=== PATIENT | male | born 1950 | race Caucasian/White ===

== ENCOUNTER → 2016-07-08 | Outpatient (CLI) | payer OTHER ==
[2016-07-08 13:56] LABS: HEMATOCRIT 47.1 % (39.0-51.0); MEAN CELL VOLUME 89.5 FL (80.0-100.0); MEAN CORPUSCULAR HEMOGLOBIN 30.2 PG (27.0-34.0); MEAN CORPUSCULAR HGB CONC 33.8 % (32.0-36.0); PLATELET COUNT 250 TH/MM3 (150-450); RED BLOOD COUNT 5.27 MIL/MM3 (4.50-5.90); RED CELL DISTRIBUTION WIDTH 12.8 % (11.6-17.2); REVIEW FLAG FINAL; WHITE BLOOD COUNT 7.2 TH/MM3 (4.0-11.0)
--- NOTE | 2016-07-08 23:41 | EKG ---
Date Performed: 07/08/2016 Time Performed: 12:41:36 PTAGE: 65 years EKG: Sinus rhythm NORMAL ECG NO PREVIOUS TRACING DOCTOR: Abdi Wells Interpretating Date/Time 07/08/2016 23:41:16
== END ==
LOC: CPRE 12:13
PROVIDERS: ATTEND Specialist
DX: Z01.812 Encounter for preprocedural laboratory examination (principal); Z01.810 Encounter for preprocedural cardiovascular examination
CPT/HCPCS: 36415; 85027; 93005

== ENCOUNTER → 2016-07-10 | Day surgery (SDC) | payer OTHER ==
--- NOTE | 2016-07-09 08:41 | MH ---
cc: SANDHYA TORRES DATE OF ADMISSION: 07/10/2016 HISTORY OF PRESENT ILLNESS A 65-year-old gentleman with vocal cord lesion and nasal obstruction, for open septal reconstruction, bilateral inferior turbinectomy and direct laryngoscopy and biopsy. PAST MEDICAL HISTORY Unremarkable. PAST SURGICAL HISTORY Unremarkable. REVIEW OF SYSTEMS/FAMILY HISTORY AND SOCIAL HISTORY Unremarkable. PHYSICAL EXAMINATION GENERAL: Well-appearing patient, no acute distress noted. HEENT: Exam reveals septal deviation, turbinate hypertrophy and a right-sided vocal cord lesion. LUNGS: Clear. HEART: Regular rate and rhythm. ABDOMEN: Soft and nontender. EXTREMITIES: Without cyanosis, clubbing or edema. NEUROLOGIC: Alert, oriented, nonfocal neurologic exam. IMPRESSION Patient with chronic hoarseness and vocal cord lesion, for direct laryngoscopy and biopsy and for nasal surgery to improve breathing. The patient was instructed method of surgery and possible complication to include anesthetic complication, cardiac difficulty, pulmonary difficulty, stroke, coma or even . Surgical complication of bleeding, infection, risk of injury to septum with bleeding, transfusion requirement, packing requirement, septal perforation, decreased sense of smell, airway obstruction and poor voice. The patient appeared to agree and accept and understand above-mentioned risks and benefits, in addition no guarantees or warranties regarding outcome were given. Will therefore proceed with surgery. MD SAMANTHA Bryant/RENETTA /8:11 AM /8:24 AM
[~2016-07-10] VITALS: Ht 185.4 cm; Wt 108.6 kg
[~2016-07-10] MED LIST: ACETAMINOPHEN 1000 MG/100 ML VIAL IV ONE; ACETAMINOPHEN/HYDROcodone 325 MG/7.5 MG TAB PO PRN; CHLORHEXIDINE GLUCONATE 2 % 1 PACK (2 CLOTHS) TOPICAL PRN; DO NOT ADM ANY ANTICOAGULANT DRUGS PRN; EPINEPHrine HCL (1:1000) 30 MG/30 ML VIAL OTHER ONE; FAMOTIDINE 20 MG/2 ML VIAL ONE; INSULIN HUMAN REGULAR 1,000 UNITS/10 ML VIAL SQ PRN; LACTATED RINGER'S 1000 ML IV PRN; LIDOCAINE 1%/EPINEPHrine 1:200,000 PF SOLN 30 ML VIAL INFIL ONE; METOPROLOL TARTRATE 25 MG TAB PO PRN; MORPHINE SULFATE 4 MG/ML INJ IV PUSH PRN; NEOSTIGMINE 3 MG/3 ML SYR IV ONE; ONDANSETRON HCL 4 MG/2 ML VIAL IV PUSH ONE; ONDANSETRON HCL 4 MG/2 ML VIAL IV PUSH PRN; PROPOFOL 200 MG/20 ML AMP IV ONE; RESP: ALBUTEROL 2.5 MG/IPRATROPIUM 0.5 MG NEB (SCH) ONE; SODIUM CHLORID 0.9% 500 ML IV PRN; SUGAMMADEX SODIUM 200 MG/2 ML VIAL IV PUSH ONE; ePHEDrine/NS 25 MG/5 ML SYR IV ONE; fentaNYL CITRATE 250 MCG/5 ML AMP ONE
[2016-07-10 06:55] VITALS: BP 141/84; PULSE 67; RESP 16; TEMP 98; O2SAT 97
[2016-07-10 10:23] VITALS: TEMP 98.1
[2016-07-10 11:02] VITALS: BP 142/76; PULSE 69; RESP 18; O2SAT 98
--- NOTE | 2016-07-13 10:02 | MP ---
cc: SANDHYA TORRES DATE OF SURGERY: 07/10/2016 PREOPERATIVE DIAGNOSIS: Vocal cord lesion, chronic sinusitis. Nasal obstruction. POSTOPERATIVE DIAGNOSIS: Vocal cord lesion, chronic sinusitis. Nasal obstruction. OPERATION: Open septal reconstruction, left nasal polypectomy, bilateral endoscopic maxillary antrostomy, bilateral inferior turbinectomy, submucous resection, direct laryngoscopy, biopsy. ANESTHESIA: General. ESTIMATED BLOOD LOSS: Minimal COMPLICATIONS: None. OPERATING SURGEON Dr. Torres. OPERATION: The patient was prepped, draped in the usual fashion. 1% Xylocaine 1:100,000 epinephrine injected into nasal septum, inferior turbinates, polyp on the left side. Anterior commissure scope was passed per orally into the endolarynx and a large broad-based polyp was noted on the right vocal cord. The left vocal cord was noted to be normal, subglottic was normal, supraglottic normal. Multiple upbiting forcep bites were taken of the right vocal cord removing the broad-based polyp on the right side. The underlying cord appeared to be unremarkable. Anterior commissure scope was removed. Mucoperichondrial incision was then made in the nasal septum on the left side. A mucoperichondrial flap elevated. A significant amount of bone and cartilage removed to improve the nasal airway and reduce the nasal fracture. The left nasal polyp was removed with Annabel forceps under direct and endoscopic visualization. The natural antrostomy identified and enlarged. The right side identified and enlarged, left side under endoscopic visualization. The Coblator probe was used to reduce the inferior turbinate bilaterally with multiple insertions significantly reducing the turbinate improving the nasal airway. No active bleeding was noted. The patient tolerated the procedure well. Sandhya Torres MD [facility]/NELA /9:43 AM /9:56 AM
== END | disposition home or self-care (01) ==
LOC: HSDC 06:25
PROVIDERS: ATTEND Specialist
DX: J38.3 Other diseases of vocal cords (principal); J32.9 Chronic sinusitis, unspecified; J34.89 Other specified disorders of nose and nasal sinuses
CPT/HCPCS: 00160; 00320; 30130; 30140; 30520; 31237; 31267; 31535; 88304; 88305; 94664; J0131; J0171; J2405; J2710; J3010; J7120